=== PATIENT | male | born 1930 | race Caucasian/White ===

== ENCOUNTER 2019-05-18 13:30 | Inpatient (IN) ==
[2019-05-18 13:31] LABS: Basophils % 0.1 % (0.1-2.0); Eosinophils % 0.3 % (0.1-12.0); Hematocrit 42.5 % (42.0-52.0); Hemoglobin 13.3 g/dL (14.1-18.0); Lymphocytes # 0.9 K/mm3 (0.7-4.5); Lymphocytes % 6.8 % (10-50); Mean Corpuscular HGB Conc 31.2 g/dL (31.8-35.4); Mean Corpuscular Volume 89.4 fl (80-94); Mean Platelet Volume 7.4 fl (7.4-10.4); Monocytes # 0.7 K/mm3 (0.1-1.0); Monocytes % 5.7 % (1.7-9.3); Neutrophils # 10.9 K/mm3 (1.8-7.8); Neutrophils % 87.1 % (37.0-80.0); Platelet Count 515 K/mm3 (142-424); Red Blood Count 4.76 M/mm3 (4.60-6.20); White Blood Count 12.5 K/mm3 (4.8-10.8)
[2019-05-18 13:53] LABS: Hypochromasia 1+; Lymphocytes % 7 % (10-50); Neutrophils % 89 % (42-76); Total Cells Counted 100
[2019-05-18 14:10] LABS: Albumin Level 1.9 gm/dL (3.4-5.0); Albumin/Globulin Ratio 0.4 (1.1-1.8); Anion Gap 14.4 mEq/L (5-15); Bilirubin,Total 0.6 mg/dL (0.2-1.0); Calcium 9.2 mg/dL (8.5-10.1); Globulin 5.2 gm/dl (1.3-3.2); Total Protein,Serum 7.1 gm/dL (6.4-8.2)
[2019-05-18 15:09] LABS: ABG HCO3 23.2 mmhg (22.0-26.0); ABG Oxygen Saturation 88 % (90-100); ABG PCO2 30.6 mmhg (35.0-45.0); ABG PO2 53.6 mmhg (80-100); ABG TCO2 24.2 mmhg (23-27)
[2019-05-18 15:10] LABS: Allen's Test ACCEPTABLE; Oxygen 5LPM %
--- NOTE | 2019-05-18 15:48 | Emergency Department Note ---
ED Disposition Clinical Impression: Community acquired pneumonia, Acute exacerbation of chronic obstructive airways disease Disposition: Admitted As Inpatient Condition on Discharge: Fair Referrals: Provider,Referral, [Primary Care Provider] - - Critical Care Critical Care Time: No Attestation: On 05/18/19, the high probability of a clinically significant, sudden or life threatening deterioration of the following system(s) required my full and direct attention, intervention and personal management. The time I documented below is in addition to time spent performing reported procedures but includes the following listed in this critical care notation. Medical Decision Making - Medical Records Medical records reviewed: Yes: I reviewed the patient's medical records. - Jhon Inquiry Pt receiving controlled substance: No Jhon was queried for this patient: No Vital Signs: 05/18/19 13:07 05/18/19 13:42 05/18/19 14:42 Temperature 98.0 F Temperature Source Oral Pulse Rate [Right Brachial] 118 H 117 H 121 H Respiratory Rate 16 Blood Pressure [Right Arm] 153/84 H 147/81 H 121/56 L Blood Pressure Mean [Right Arm] 107 103 77 Blood Pressure Source [Right Arm] Automatic Cuff Automatic Cuff Automatic Cuff Blood Pressure Position [Right Arm] Sitting Sitting Sitting 02 Sat by Pulse Oximetry 96 90 L 87 L Oxygen Delivery Method Room Air Room Air Nasal Cannula Oxygen Flow Rate (LPM) 4 05/18/19 15:08 Temperature Temperature Source Pulse Rate [Right Brachial] 119 H Respiratory Rate Blood Pressure [Right Arm] 120/65 Blood Pressure Mean [Right Arm] 83 Blood Pressure Source [Right Arm] Automatic Cuff Blood Pressure Position [Right Arm] Sitting 02 Sat by Pulse Oximetry 87 L Oxygen Delivery Method Nasal Cannula Oxygen Flow Rate (LPM) 5 - Lab Data Lab Results 05/18/19 13:10: WBC 12.5 H, RBC 4.76, Hgb 13.3 L, Hct 42.5, MCV 89.4, MCH 27.9, MCHC 31.2 L, RDW 14.0, Plt Count 515 H, MPV 7.4, Neut % (Auto) 87.1 H, Lymph % (Auto) 6.8 L, [place] % (Auto) 5.7, Eos % (Auto) 0.3, Baso % (Auto) 0.1, Neut # (Auto) 10.9 H, Lymph # (Auto) 0.9, [place] # (Auto) 0.7, Eos # (Auto) 0.0, Baso # (Auto) 0.0, Total Counted 100, Neutrophils % (Manual) 89 H, Band Neutrophils % 3.0, Lymphocytes % (Manual) 7 L, Metamyelocytes % 1.0, Platelet Estimate Normal, Hypochromasia 1+ 05/18/19 13:10: Sodium 135 L, Potassium 4.4, Chloride 98, Carbon Dioxide 27, Anion Gap 14.4, BUN 34 H, Creatinine 1.25, Estimated Creat Clear 51, Estimated GFR 55 L, Est GFR ( Amer) 66, Glucose 167 H, Calcium 9.2, Total Bilirubin 0.6, AST 39 H, ALT 36, Alkaline Phosphatase 132 H, Total Protein 7.1, Albumin 1.9 L, Globulin 5.2 H, Albumin/Globulin Ratio 0.4 L 05/18/19 13:10: Lactate 1.8 05/18/19 13:10: B-Natriuretic Peptide 92 05/18/19 13:42: Specimen Source R radial, O2 % 5lpm, ABG pH 7.50 H, ABG pCO2 30.6 L, ABG pO2 53.6 L, ABG HCO3 23.2, ABG Total CO2 24.2, ABG O2 Saturation 88 L, ABG Base Excess 0.0, [place] Test Acceptable Result diagrams: 05/18/19 13:10 05/18/19 13:10 Orders (Tests/Meds): ED MEDICATIONS Generic Name Dose Route Start Last Admin Trade Name Freq PRN Reason Stop Dose Admin Sodium Chloride 3 ml 05/18/19 13:41 Sodium Chloride 3% 15ml Neb IH 06/17/19 13:40 ONCE PRN INDUCE SPUTUM COLLECTION ORDERS Category Date Time Status Blood Culture Stat Micro 05/18/19 13:10 Received Sputum Culture & Gram Stain Stat Micro 05/18/19 13:41 Ordered General Adult HPI - General Chief complaint: Shortness of Breath/Dyspnea Stated complaint: shortness of air s/p ivf infusion Time Seen by Provider: 05/18/19 13:30 Mode of Arrival: EMS Source of Information: Patient Limitations: Physical Limitations Description of Symptoms (Recalled from ER Triage Doc. by RN): pt with recent hip surgery was sent to [facility] for rehab pt/ot and subsequently became dehydrated during his stay. vt staff gave him ivf's last night. this morning he couldn't breathe well. - History of Present Illness HPI narrative: The patient is an 89-year-old white male who resides at the skilled nursing. The patient was brought to the emergency room 2 days ago and given a liter of fluids. At that time the diagnosis of dehydration. Patient comes in today rattling short of breath without terrible acute distress. Patient has been coughing up yellowish sputum. The patient has felt feverish with chills. Patient has no actual fever. The patient has some shortness of breath. Patient has had no sore throat or headache. The patient has not had any nausea vomiting or diarrhea. The patient has maintained a small added appetite since all this occurred. Patient has no swelling or distal extremity complaints. Onset (ago): day(s) Location: chest Radiation: non-radiation Severity: mild Consistency: constant Relieving factors: none Exacerbating factors: none Associated symptoms: denies other symptoms - Related Data Home Medications Medication Instructions Recorded Confirmed aspirin 81 mg tablet,delayed 81 mg PO ONCE 01/22/18 03/25/19 release atorvastatin 40 mg tablet 40 mg PO ONCE 01/22/18 03/25/19 fenofibrate micronized 134 mg 134 mg PO ONCE 01/22/18 03/25/19 capsule furosemide 20 mg tablet 20 mg PO BID tab 01/22/18 03/25/19 ipratropium 20 mcg-albuterol 100 1 puff INHALATION Q6H 01/22/18 03/25/19 mcg/actuation mist for inhalation metoprolol succinate ER 50 mg 50 mg PO ONCE 01/22/18 03/25/19 tablet,extended release 24 hr buspirone 5 mg tablet 5 mg PO BID 02/25/19 03/25/19 escitalopram 10 mg tablet 10 mg PO DAILY 02/25/19 03/25/19 hydroxyzine HCl 25 mg tablet 25 mg PO QHS 02/25/19 03/25/19 metoprolol succinate ER 50 mg 50 mg PO DAILY 02/25/19 03/25/19 capsule sprinkle, ext. release 24 hr oxybutynin chloride ER 15 mg 15 mg PO DAILY 02/25/19 03/25/19 tablet,extended release 24 hr propranolol 20 mg/5 mL (4 mg/mL) 10 mg PO BID 02/25/19 03/25/19 oral solution ranitidine 150 mg capsule 150 mg PO DAILY 02/25/19 03/25/19 tamsulosin 0.4 mg capsule 0.4 mg PO DAILY 02/25/19 03/25/19 venlafaxine ER 75 mg 75 mg PO DAILY 02/25/19 03/25/19 capsule,extended release 24 hr Allergies Allergy/AdvReac Type Severity Reaction Status Date / Time No Known Allergies Allergy Verified 03/25/19 13:34 [facility] History - Hepatitis A Screen Drug use history?: No High risk sexual behaviors?: No History of sexually transmitted infection?: No Currently employed?: No Childcare worker?: No Do you have indoor plumbing?: Yes Do you have electricity?: Yes Attestation statement:: This patient has been screened for Hepatitis A risk factors. Medical History: Reports:: Carotid Stenosis, Chronic Obstructive Pulmonary Disease (COPD), Coronary Artery Disease, Heart Murmur, Hyperlipidemia, Hypertension, Lung Disease, Peripheral Vascular Disease Denies:: Diabetes Mellitus Type 1, Diabetes Mellitus Type 2, Internal Pacemaker, Seizures Other Medical History: Reports: Anemia Other Surgeries: Yes: Colonoscopy, Hernia Repair, Other (back sx). No: Pacemaker Amputation: No Fractures: No Comment: back surg x3, cataract both eyes - Social History Smoking Status: Former smoker Alcohol Intake: never Alcohol Intake Frequency:: 0-2 drinks per day Substance Use Type: denies use Occupational Status: retired Housing: house Household Members: family Family Hx:: No significant family history ROS Obtained: Yes All systems reviewed & no additional complaints Physical Exam - General General appearance: alert, in no apparent distress - Head Head exam: atraumatic, normocephalic, normal inspection - Eye Eye exam: Present: normal appearance, PERRL, EOMI - ENT ENT exam: Present: normal exam, normal oropharynx, mucous membranes moist, TM's normal bilaterally, normal external ear exam - Neck Neck exam: Present: normal inspection, full ROM, trachea midline. Absent: meningismus, lymphadenopathy - Chest Chest inspection: Present: normal inspection, symmetric chest wall rise. Absent: tenderness - Respiratory Respiratory exam: Present: wheezes. Absent: respiratory distress - Expanded Respiratory Exam Location: Right: wheezes, rales, rhonchi - Cardiovascular Cardiovascular exam: Present: regular rate, irregular rhythm. Absent: JVD - Abdominal Exam Abdominal exam: Present: soft, normal bowel sounds. Absent: distention, tenderness, guarding - exam: Present: normal inspection - Extremities Exam Extremities exam: Present: normal inspection, full ROM, normal capillary refill. Absent: calf tenderness - Back Exam Back exam: Present: normal inspection. Absent: tenderness - Neurological Exam Neurological exam: Present: alert, oriented X3 - Psychiatric Psychiatric exam: Present: normal affect, normal mood - Skin Skin exam: Present: warm, dry, intact, normal color - Lymphatic Lymphatic Findings: no adenopathy
--- NOTE | 2019-05-18 15:59 | Electrocardiograph Report ---
APPROVED REPORT Exam: Resting ECG HR:114 bpm ECG Measurements Heart Rate 114 AXES MD 164 P 113 QRSd 88 QRS 219 QT 314 T116 QTc 432 <Conclusion> Sinus tachycardia with occasional premature ventricular complexes Right superior axis deviation late r wave progression Abnormal ECG Electronically signed by : Irwin Barron, 05/18/2019 15:59:09
--- NOTE | 2019-05-18 17:37 | History & Physical Report ---
*Admission Date: 05/18/19 *Chief complaint: shortness of breath *History of present illness: 89 year old male with a significant history of COPD and MRSA pneumonia was transported to ED for SOA from [facility] where he has been for the last few weeks following hip fracture repair. Patient was treated with a round of Bactrim approx 2 weeks ago for concern of pneumonia. He had no improvement of cough/congestion and CXR was ordered last week which was unremarkable. Patient was given prednisone taper and duonebs x 1 week. Yesterday labs showed mild dehydration and he was given a liter of normal saline. Today, nursing staff report worsening shortness of breath, saturations 83% 3L/NC, weakness and confusion. Of note, patient is not typically on oxygen. On exam, patient was found to be tachypneic at 36-40, hypoxic with saturations in the low 80's on oxygen and dyspneic with conversation. Patient was given Lasix IM and transferred to [facility] ED for further evaluation. In the ED, patient was found to have RUL and RLL pneumonia with leukocytosis of 12. Patient was admitted for IV antibiotics and further evaluation. [facility] History I have reviewed the patient's past medical history: Yes Medical History: Reports:: Carotid Stenosis, Chronic Obstructive Pulmonary Disease (COPD), Coronary Artery Disease, Heart Murmur, Hyperlipidemia, Hypertension, Lung Disease, Peripheral Vascular Disease Denies:: Diabetes Mellitus Type 1, Diabetes Mellitus Type 2, Internal Pacemaker, Seizures *Have you ever received a pneumonia vaccine?: No *Have you received a flu vaccine this season?: No Other Medical History: Reports: Anemia Other Surgeries: Yes: Colonoscopy, Hernia Repair, Other (back sx). No: Pacemaker Amputation: No Fractures: No - *Social History Smoking Status: Former smoker Alcohol Intake: never Alcohol Intake Frequency:: 0-2 drinks per day Substance Use Type: denies use *Occupational Status:: retired Housing: house Household Members: family *Travel in the last 8 weeks: None Family Hx:: No significant family history Review of Systems - Constitutional Reports fatigue, Reports malaise, Reports weakness - *Respiratory Reports chest congestion, Reports cough, Reports shortness of breath Meds Home Medications Medication Instructions Recorded Confirmed Type aspirin 81 mg tablet,delayed 81 mg PO DAILY 01/22/18 05/18/19 History release atorvastatin 40 mg tablet 40 mg PO DAILY 01/22/18 05/18/19 History fenofibrate micronized 134 mg 134 mg PO DAILY 01/22/18 05/18/19 History capsule furosemide 20 mg tablet 20 mg PO BID tab 01/22/18 05/18/19 History ipratropium 20 mcg-albuterol 100 1 puff INHALATION Q6H 01/22/18 05/18/19 History mcg/actuation mist for inhalation metoprolol succinate ER 50 mg 50 mg PO DAILY 01/22/18 05/18/19 History tablet,extended release 24 hr buspirone 5 mg tablet 5 mg PO BID 02/25/19 05/18/19 History escitalopram 10 mg tablet 10 mg PO DAILY 02/25/19 05/18/19 History hydroxyzine HCl 25 mg tablet 25 mg PO QHS 02/25/19 05/18/19 History oxybutynin chloride ER 15 mg 15 mg PO DAILY 02/25/19 05/18/19 History tablet,extended release 24 hr propranolol 20 mg/5 mL (4 mg/mL) 10 mg PO BID 02/25/19 05/18/19 History oral solution ranitidine 150 mg capsule 150 mg PO DAILY 02/25/19 05/18/19 History tamsulosin 0.4 mg capsule 0.4 mg PO DAILY 02/25/19 05/18/19 History venlafaxine ER 75 mg 75 mg PO DAILY 02/25/19 05/18/19 History capsule,extended release 24 hr Allergies Allergy/AdvReac Type Severity Reaction Status Date / Time No Known Allergies Allergy Verified 03/25/19 13:34 Exam Vital signs and Labs for Last 24 Hours: Temp Pulse Resp BP Pulse Ox 98.0 F 118 H 16 116/66 87 L 05/18/19 13:07 05/18/19 16:41 05/18/19 13:07 05/18/19 16:41 05/18/19 16:41 Laboratory Results - last 24 hr 05/18/19 13:10: WBC 12.5 H, RBC 4.76, Hgb 13.3 L, Hct 42.5, MCV 89.4, MCH 27.9, MCHC 31.2 L, RDW 14.0, Plt Count 515 H, MPV 7.4, Neut % (Auto) 87.1 H, Lymph % (Auto) 6.8 L, [place] % (Auto) 5.7, Eos % (Auto) 0.3, Baso % (Auto) 0.1, Neut # (Auto) 10.9 H, Lymph # (Auto) 0.9, [place] # (Auto) 0.7, Eos # (Auto) 0.0, Baso # (Auto) 0.0, Total Counted 100, Neutrophils % (Manual) 89 H, Band Neutrophils % 3.0, Lymphocytes % (Manual) 7 L, Metamyelocytes % 1.0, Platelet Estimate Normal, Hypochromasia 1+ 05/18/19 13:10: Sodium 135 L, Potassium 4.4, Chloride 98, Carbon Dioxide 27, Anion Gap 14.4, BUN 34 H, Creatinine 1.25, Estimated Creat Clear 51, Estimated GFR 55 L, Est GFR ( Amer) 66, Glucose 167 H, Calcium 9.2, Total Bilirubin 0.6, AST 39 H, ALT 36, Alkaline Phosphatase 132 H, Total Protein 7.1, Albumin 1.9 L, Globulin 5.2 H, Albumin/Globulin Ratio 0.4 L 05/18/19 13:10: Lactate 1.8 05/18/19 13:10: B-Natriuretic Peptide 92 05/18/19 13:42: Specimen Source R radial, O2 % 5lpm, ABG pH 7.50 H, ABG pCO2 30.6 L, ABG pO2 53.6 L, ABG HCO3 23.2, ABG Total CO2 24.2, ABG O2 Saturation 88 L, ABG Base Excess 0.0, [place] Test Acceptable I & O for Last 24 hours: Intake & Output 05/16/19 05/17/19 05/18/19 05/19/19 11:59 11:59 11:59 11:59 Weight 190 lb Narrative: Frail, elderly gentleman in moderate distress. Tachypneic 36-40, saturations 82% 3L/NC. Rate and rhythm regular. Mildly tachycardiac. Lung sounds with scattered wheezes, loose rhonchi and crackles RLL. Abdomen soft and nontender. No LE edema. Alert and oriented x2 with noted confusion. He did recognize me, states "you work with Dr. Barron." ENT exam unremarkable. No LE edema Assessment and Plan (1) HCAP (healthcare-associated pneumonia) Current visit: Yes Status: Acute Category: Medical Code(s): J18.9 - Pneumonia, unspecified organism (2) Acute exacerbation of chronic obstructive airways disease Current visit: Yes Status: Acute Category: Medical Code(s): J44.1 - Chronic obstructive pulmonary disease with (acute) exacerbation - Assessment and plan all Dx Assessment and Plan for all problems:: Change antibiotics to cefepime and vancomycin given his history. Blood cultures pending. Obtain sputum if able to produce. Duonebs added Q 6 hours.
[2019-05-19 07:11] LABS: Basophils % 0.1 % (0.1-2.0); Eosinophils # 0.1 K/mm3 (0.0-0.4); Eosinophils % 0.8 % (0.1-12.0); Hematocrit 38.4 % (42.0-52.0); Hemoglobin 12.2 g/dL (14.1-18.0); Lymphocytes # 0.7 K/mm3 (0.7-4.5); Mean Corpuscular HGB Conc 31.7 g/dL (31.8-35.4); Mean Corpuscular Volume 89.3 fl (80-94); Monocytes # 0.8 K/mm3 (0.1-1.0); Neutrophils # 10.4 K/mm3 (1.8-7.8); Neutrophils % 86.2 % (37.0-80.0); Platelet Count 431 K/mm3 (142-424)
[2019-05-19 07:25] LABS: Albumin Level 1.6 gm/dL (3.4-5.0); Albumin/Globulin Ratio 0.3 (1.1-1.8); Anion Gap 10.4 mEq/L (5-15); Bilirubin,Total 0.6 mg/dL (0.2-1.0); Calcium 8.6 mg/dL (8.5-10.1); Globulin 4.6 gm/dl (1.3-3.2); Total Protein,Serum 6.2 gm/dL (6.4-8.2)
--- NOTE | 2019-05-19 07:29 | Pharmacy Consult Notes ---
[facility] Pharmacy VTE Monitoring - Patient Demographics Admission date: 05/18/19 Report Date: 05/19/19 Time: 07:29 Allergies/Adverse Reactions: Patient Allergies No Known Allergies Allergy (Verified 03/25/19 13:34) Height: 1.75 m Weight: 67.358 kg Patient Problems: Current Active Problems Community acquired pneumonia (Acute) Acute exacerbation of chronic obstructive airways disease (Acute) HCAP (healthcare-associated pneumonia) (Acute) - VTE Risk Labs: VTE Related Lab Results Hgb 13.3 g/dL (14.1-18.0) L 05/18/19 13:10 Hct 42.5 % (42.0-52.0) 05/18/19 13:10 Plt Count 515 K/mm3 (142-424) H 05/18/19 13:10 BUN 31 mg/dL (7-18) H 05/19/19 06:12 Creatinine 1.13 mg/dL (0.70-1.30) 05/19/19 06:12 Estimated Creat Clear 44 mL/min (50-200) 05/19/19 06:12 Was VTE Risk Assessment Performed: Yes VTE Score: 3 VTE Risk Level: Low Risk Clinical Trial Participant: No - Prophylaxis VTE Prophylaxis Ordered?: Yes Types of VTE Prophylaxis: TEDS Knee High Location of Applied Device: Bilateral Lower Extremeties
--- NOTE | 2019-05-19 08:21 | Progress Note ---
Internal Medicine - PN: Subj *Date: 05/19/19 *Time: 08:19 Interval history: Patient is awake, alert, he is tolerated his antibiotics through the night. Nurses report that he is been doing well. He has some complaints of shortness of air and cough but otherwise feels somewhat better. Exam Vital signs and Labs for Last 24 Hours: Temp Pulse Resp BP Pulse Ox 98.7 F 94 H 25 H 102/63 L 88 L 05/19/19 04:00 05/19/19 05:49 05/19/19 04:00 05/19/19 04:00 05/19/19 05:49 Laboratory Results - last 24 hr 05/18/19 13:10: WBC 12.5 H, RBC 4.76, Hgb 13.3 L, Hct 42.5, MCV 89.4, MCH 27.9, MCHC 31.2 L, RDW 14.0, Plt Count 515 H, MPV 7.4, Neut % (Auto) 87.1 H, Lymph % (Auto) 6.8 L, [place] % (Auto) 5.7, Eos % (Auto) 0.3, Baso % (Auto) 0.1, Neut # (Auto) 10.9 H, Lymph # (Auto) 0.9, [place] # (Auto) 0.7, Eos # (Auto) 0.0, Baso # (Auto) 0.0, Total Counted 100, Neutrophils % (Manual) 89 H, Band Neutrophils % 3.0, Lymphocytes % (Manual) 7 L, Metamyelocytes % 1.0, Platelet Estimate Normal, Hypochromasia 1+ 05/18/19 13:10: Sodium 135 L, Potassium 4.4, Chloride 98, Carbon Dioxide 27, Anion Gap 14.4, BUN 34 H, Creatinine 1.25, Estimated Creat Clear 51, Estimated GFR 55 L, Est GFR ( Amer) 66, Glucose 167 H, Calcium 9.2, Total Bilirubin 0.6, AST 39 H, ALT 36, Alkaline Phosphatase 132 H, Total Protein 7.1, Albumin 1.9 L, Globulin 5.2 H, Albumin/Globulin Ratio 0.4 L 05/18/19 13:10: Lactate 1.8 05/18/19 13:10: B-Natriuretic Peptide 92 05/18/19 13:42: Specimen Source R radial, O2 % 5lpm, ABG pH 7.50 H, ABG pCO2 30.6 L, ABG pO2 53.6 L, ABG HCO3 23.2, ABG Total CO2 24.2, ABG O2 Saturation 88 L, ABG Base Excess 0.0, [place] Test Acceptable 05/18/19 18:27: POC Glucose 103 05/18/19 20:10: Troponin I < 0.02 05/18/19 20:38: POC Glucose 150 H 05/19/19 01:05: Troponin I < 0.02 05/19/19 06:05: POC Glucose 82 05/19/19 06:12: Sodium 138, Potassium 3.4 L D, Chloride 101, Carbon Dioxide 30, Anion Gap 10.4, BUN 31 H, Creatinine 1.13, Estimated Creat Clear 44, Estimated GFR 61, Est GFR ( Amer) 74, Glucose 99 D, Calcium 8.6, Total Bilirubin 0.6, AST 36, ALT 37, Alkaline Phosphatase 116, Total Protein 6.2 L, Albumin 1.6 L D, Globulin 4.6 H, Albumin/Globulin Ratio 0.3 L I & O for Last 24 hours: Intake & Output 05/16/19 05/17/19 05/18/19 05/19/19 11:59 11:59 11:59 11:59 Intake Total 1164 / 1164 Balance 1164 / 1164 Weight 148 lb 8 oz Narrative: Alert, oriented x3. Globally weak. Oropharynx dry but clear. No JVD. Lungs have rhonchi bilaterally but good air movement. Heart rate regular. Abdomen soft. Extremities warm and well-perfused. Assessment and Plan (1) HCAP (healthcare-associated pneumonia) Current visit: Yes Status: Acute Category: Medical Code(s): J18.9 - Pneumonia, unspecified organism (2) Acute exacerbation of chronic obstructive airways disease Current visit: Yes Status: Acute Category: Medical Code(s): J44.1 - Chronic obstructive pulmonary disease with (acute) exacerbation - Assessment and plan all Dx Assessment and Plan for all problems:: Plan will be to continue broad-spectrum antibiotics as noted. Given his history of MRSA infection we will continue vancomycin. Await sputum cultures. Given his recent hip replacement we will ask PT/OT to work with him to continue therapy while in the hospital.
--- NOTE | 2019-05-19 09:17 | Pharmacy Consult Notes ---
- Pharmacy Consult Date: 05/19/19 Time: 09:15 Referring provider: DR. PIPER Reason for Consult:: VANCOMYCIN DOSING Allergies and ADEs:: Allergies Allergy/AdvReac Type Severity Reaction Status Date / Time No Known Allergies Allergy Verified 03/25/19 13:34 Home Medications:: Home Medications Medication Instructions Recorded Confirmed Type metoprolol succinate ER 50 mg 50 mg PO DAILY 01/22/18 05/19/19 History tablet,extended release 24 hr oxybutynin chloride ER 15 mg 15 mg PO 1700 02/25/19 05/19/19 History tablet,extended release 24 hr ranitidine 150 mg capsule 150 mg PO 0600,1700 02/25/19 05/19/19 History tamsulosin 0.4 mg capsule 0.4 mg PO 1700 02/25/19 05/19/19 History venlafaxine ER 75 mg 75 mg PO DAILY 02/25/19 05/19/19 History capsule,extended release 24 hr Acetaminophen [Tylenol 325mg 650 mg PO Q4HP PRN 05/18/19 05/19/19 History Tablet] Aspirin [Aspirin 325mg Tab] 325 mg PO DAILY 05/18/19 05/19/19 History Bisacodyl [Bisacodyl 10mg Supp] 10 mg RC DAILYP PRN 05/18/19 05/18/19 History Cyclobenzaprine HCl 10 mg PO Q8HP PRN 05/18/19 05/18/19 History [Cyclobenzaprine 10mg Tab] Docusate Sodium [Docusate Sodium 100 mg PO BIDP PRN 05/18/19 05/18/19 History 100mg Cap] Donepezil HCl [Aricept 10mg 10 mg PO HS 05/18/19 05/19/19 History tablet] Ferrous Sulfate 325 mg PO DAILY 05/18/19 05/19/19 History Ipratropium/Albuterol Sulfate 3 ml IH Q6H 05/18/19 05/19/19 History [Duoneb 3mL neb] Ipratropium/Albuterol Sulfate 3 ml IH TIDP PRN 05/18/19 05/19/19 History [Duoneb 3mL neb] LORazepam [Ativan 0.5mg 0.5 mg PO TID 05/18/19 05/19/19 History tablet] Polyethylene Glycol 3350 [Miralax 17 gm PO DAILY 05/18/19 05/18/19 History 17gm Packet] Atorvastatin Calcium [Atorvastatin 80 mg PO HS 05/19/19 05/19/19 History 80mg Tab] Escitalopram Oxalate 20 mg PO HS 05/19/19 05/19/19 History Height: 1.75 m Weight: 67.358 kg Laboratory Results:: Laboratory Results - last 24 hr 05/18/19 13:10: WBC 12.5 H, RBC 4.76, Hgb 13.3 L, Hct 42.5, MCV 89.4, MCH 27.9, MCHC 31.2 L, RDW 14.0, Plt Count 515 H, MPV 7.4, Neut % (Auto) 87.1 H, Lymph % (Auto) 6.8 L, [place] % (Auto) 5.7, Eos % (Auto) 0.3, Baso % (Auto) 0.1, Neut # (Auto) 10.9 H, Lymph # (Auto) 0.9, [place] # (Auto) 0.7, Eos # (Auto) 0.0, Baso # (Auto) 0.0, Total Counted 100, Neutrophils % (Manual) 89 H, Band Neutrophils % 3.0, Lymphocytes % (Manual) 7 L, Metamyelocytes % 1.0, Platelet Estimate Normal, Hypochromasia 1+ 05/18/19 13:10: Sodium 135 L, Potassium 4.4, Chloride 98, Carbon Dioxide 27, Anion Gap 14.4, BUN 34 H, Creatinine 1.25, Estimated Creat Clear 51, Estimated GFR 55 L, Est GFR ( Amer) 66, Glucose 167 H, Calcium 9.2, Total Bilirubin 0.6, AST 39 H, ALT 36, Alkaline Phosphatase 132 H, Total Protein 7.1, Albumin 1.9 L, Globulin 5.2 H, Albumin/Globulin Ratio 0.4 L 05/18/19 13:10: Lactate 1.8 05/18/19 13:10: B-Natriuretic Peptide 92 05/18/19 13:42: Specimen Source R radial, O2 % 5lpm, ABG pH 7.50 H, ABG pCO2 30.6 L, ABG pO2 53.6 L, ABG HCO3 23.2, ABG Total CO2 24.2, ABG O2 Saturation 88 L, ABG Base Excess 0.0, [place] Test Acceptable 05/18/19 18:27: POC Glucose 103 05/18/19 20:10: Troponin I < 0.02 05/18/19 20:38: POC Glucose 150 H 05/19/19 01:05: Troponin I < 0.02 05/19/19 06:05: POC Glucose 82 05/19/19 06:12: WBC 12.0 H, RBC 4.30 L, Hgb 12.2 L, Hct 38.4 L, MCV 89.3, MCH 28.3, MCHC 31.7 L, RDW 14.0, Plt Count 431 H, MPV 7.0 L, Neut % (Auto) 86.2 H, Lymph % (Auto) 6.0 L, [place] % (Auto) 7.0, Eos % (Auto) 0.8, Baso % (Auto) 0.1, Neut # (Auto) 10.4 H, Lymph # (Auto) 0.7, [place] # (Auto) 0.8, Eos # (Auto) 0.1, Baso # (Auto) 0.0 05/19/19 06:12: Sodium 138, Potassium 3.4 L D, Chloride 101, Carbon Dioxide 30, Anion Gap 10.4, BUN 31 H, Creatinine 1.13, Estimated Creat Clear 44, Estimated GFR 61, Est GFR ( Amer) 74, Glucose 99 D, Calcium 8.6, Total Bilirubin 0.6, AST 36, ALT 37, Alkaline Phosphatase 116, Total Protein 6.2 L, Albumin 1.6 L D, Globulin 4.6 H, Albumin/Globulin Ratio 0.3 L Medical History: Reports:: Carotid Stenosis, Chronic Obstructive Pulmonary Disease (COPD), Coronary Artery Disease, Heart Murmur, Hyperlipidemia, Hypertension, Lung Disease, Peripheral Vascular Disease Denies:: Cancer, Diabetes Mellitus Type 1, Diabetes Mellitus Type 2, Internal Pacemaker, MRSA, Seizures Assessment and Plan (1) HCAP (healthcare-associated pneumonia) Current visit: Yes Status: Acute Category: Medical Code(s): J18.9 - Pneumonia, unspecified organism (2) Acute exacerbation of chronic obstructive airways disease Current visit: Yes Status: Acute Category: Medical Code(s): J44.1 - Chronic obstructive pulmonary disease with (acute) exacerbation - Assessment and plan all Dx Assessment and Plan for all problems:: BASED ON PATIENT'S FACTORS, RECOMMENDED CONTINUING WITH VANCOMYCIN 1250 MG Q24H AT THIS TIME. WILL TIME NEXT DOSE FOR 1500 TODAY. PHARMACY WILL FOLLOW DAILY AND ADJUST APPROPRIATE.
[2019-05-19 14:08] LABS: Lymphocytes % 4 % (10-50); Monocytes % 4 % (2-9); Neutrophils % 92 % (42-76); Total Cells Counted 100
[2019-05-19 14:09] LABS: RBC Morphology Normal
[2019-05-20 06:38] LABS: Eosinophils # 0.1 K/mm3 (0.0-0.4); Eosinophils % 0.4 % (0.1-12.0); Hematocrit 37.1 % (42.0-52.0); Hemoglobin 11.1 g/dL (14.1-18.0); Lymphocytes # 0.8 K/mm3 (0.7-4.5); Lymphocytes % 6.4 % (10-50); Mean Corpuscular HGB Conc 29.9 g/dL (31.8-35.4); Mean Corpuscular Volume 90.4 fl (80-94); Mean Platelet Volume 7.3 fl (7.4-10.4); Monocytes # 0.9 K/mm3 (0.1-1.0); Monocytes % 6.8 % (1.7-9.3); Neutrophils # 11.1 K/mm3 (1.8-7.8); Neutrophils % 86.4 % (37.0-80.0); Platelet Count 347 K/mm3 (142-424); Red Blood Count 4.11 M/mm3 (4.60-6.20); Red Cell Distribution Width 14.1 % (11.5-17.5); White Blood Count 12.9 K/mm3 (4.8-10.8)
[2019-05-20 06:40] LABS: Anion Gap 10.4 mEq/L (5-15); Calcium 8.6 mg/dL (8.5-10.1)
--- NOTE | 2019-05-20 07:59 | Progress Note ---
Internal Medicine - PN: Subj *Date: 05/20/19 *Time: 08:44 Interval history: No acute events overnight. Patient stable on supplemental oxygen. Remains afebrile, hemodynamically stable. Denies chest pain, nausea vomiting, diarrhea. Shortness of breath at baseline. Exam Vital signs and Labs for Last 24 Hours: Temp Pulse Resp BP Pulse Ox 99.3 F 90 20 107/55 L 89 L 05/20/19 04:18 05/20/19 06:04 05/20/19 04:18 05/20/19 04:18 05/20/19 06:04 Laboratory Results - last 24 hr 05/19/19 06:12: WBC 12.0 H, RBC 4.30 L, Hgb 12.2 L, Hct 38.4 L, MCV 89.3, MCH 28.3, MCHC 31.7 L, RDW 14.0, Plt Count 431 H, MPV 7.0 L, Neut % (Auto) 86.2 H, Lymph % (Auto) 6.0 L, [place] % (Auto) 7.0, Eos % (Auto) 0.8, Baso % (Auto) 0.1, Neut # (Auto) 10.4 H, Lymph # (Auto) 0.7, [place] # (Auto) 0.8, Eos # (Auto) 0.1, Baso # (Auto) 0.0, Total Counted 100, Neutrophils % (Manual) 92 H, Lymphocytes % (Manual) 4 L, Monocytes % (Manual) 4, Platelet Estimate Normal, RBC Morphology Normal 05/19/19 11:37: POC Glucose 69 L 05/19/19 16:34: POC Glucose 87 05/19/19 20:43: POC Glucose 86 05/20/19 05:38: WBC 12.9 H, RBC 4.11 L, Hgb 11.1 L, Hct 37.1 L, MCV 90.4, MCH 27.0, MCHC 29.9 L, RDW 14.1, Plt Count 347, MPV 7.3 L, Neut % (Auto) 86.4 H, Lymph % (Auto) 6.4 L, [place] % (Auto) 6.8, Eos % (Auto) 0.4, Baso % (Auto) 0.0 L, Neut # (Auto) 11.1 H, Lymph # (Auto) 0.8, [place] # (Auto) 0.9, Eos # (Auto) 0.1, Baso # (Auto) 0.0 05/20/19 05:38: Sodium 138, Potassium 3.4 L, Chloride 103, Carbon Dioxide 28, Anion Gap 10.4, BUN 29 H, Creatinine 1.02, Estimated Creat Clear 50, Estimated GFR 69, Est GFR ( Amer) 84, Glucose 90, Calcium 8.6 05/20/19 06:29: POC Glucose 83 I & O for Last 24 hours: Intake & Output 05/17/19 05/18/19 05/19/19 05/20/19 23:59 23:59 23:59 23:59 Intake Total 120 / 360 2146 / 2146 Balance 120 / 360 2146 / 2146 Weight 64.438 kg 67.358 kg 69.003 kg Narrative: Alert, oriented x3. Globally weak. Oropharynx dry but clear. No JVD. Lungs have rhonchi bilaterally, good air movement throughout lung viera Heart rate regular. Abdomen soft. Extremities warm and well-perfused. Assessment and Plan (1) HCAP (healthcare-associated pneumonia) Current visit: Yes Status: Acute Category: Medical Code(s): J18.9 - Pneumonia, unspecified organism (2) Acute exacerbation of chronic obstructive airways disease Current visit: Yes Status: Acute Category: Medical Code(s): J44.1 - Chronic obstructive pulmonary disease with (acute) exacerbation - Assessment and plan all Dx Assessment and Plan for all problems:: Culture still pending. Patient stable at this time. Continue antibiotics with de-escalation based on cultures if give guidance. [facility]
[2019-05-20 09:17] LABS: Lymphocytes % 3 % (10-50); Monocytes % 5 % (2-9); Neutrophils % 90 % (42-76); Total Cells Counted 100
--- NOTE | 2019-05-20 22:06 | Discharge Summary ---
General - General Admission date:: 05/18/19 <Irwin Barron - 05/21/19 08:45> 05/18/19 <Omer Hunter - 05/20/19 22:06> Discharge date: 05/21/19 <Irwin Barron - 05/21/19 08:45> 05/21/19 <Omer Hunter - 05/20/19 22:06> HPI HPI: 89 year old male with a significant history of COPD and MRSA pneumonia was transported to ED for SOA from [facility] where he has been for the last few weeks following hip fracture repair. Patient was treated with a round of Bactrim approx 2 weeks ago for concern of pneumonia. He had no improvement of cough/congestion and CXR was ordered last week which was unremarkable. Patient was given prednisone taper and duonebs x 1 week. Yesterday labs showed mild dehydration and he was given a liter of normal saline. Today, nursing staff report worsening shortness of breath, saturations 83% 3L/NC, weakness and confusion. Of note, patient is not typically on oxygen. On exam, patient was found to be tachypneic at 36-40, hypoxic with saturations in the low 80's on oxygen and dyspneic with conversation. Patient was given Lasix IM and transferred to [facility] ED for further evaluation. In the ED, patient was found to have RUL and RLL pneumonia with leukocytosis of 12. Patient was admitted for IV antibiotics and further evaluation. <Omer Hunter - 05/20/19 22:06> Hospital Course Hospital Course: Patient was admitted, placed on broad-spectrum IV antibiotics for community acquired pneumonia. He did well with this. Sputum culture was obtained but was nondiagnostic at the time of discharge. Blood cultures were negative for 48 hours. Patient felt better with hydration and laboratory studies improved. This morning patient was still tired and coughing, but stated that he felt "better and I would like to go back to my regular room at [facility]." Patient will be transferred back to [facility] to finish up 1 more day of azithromycin and then 5 more days of Ceftin ear. He needs DuoNeb's 3 times daily and every 4 hours as needed. He will need 3 more days of steroids as noted. He will need to continue PT/OT. <Kevin Barronhen - 05/21/19 08:45> Objective Vital signs: Temp Pulse Resp BP Pulse Ox 97.9 F 107 H 19 114/53 L 91 L 05/21/19 08:00 05/21/19 08:00 05/21/19 08:00 05/21/19 08:00 05/21/19 08:00 <Maria LhectorIrwin - 05/21/19 08:45> Temp Pulse Resp BP Pulse Ox 98.8 F 88 16 109/48 L 88 L 05/20/19 19:14 05/20/19 19:14 05/20/19 19:14 05/20/19 19:14 05/20/19 19:22 <Omer Hunter - 05/20/19 22:06> Narrative: ENT exam clear. Oropharynx clear. No JVD. Rhonchi throughout lung viera but these are about the same as previously. Heart rate regular. Abdomen soft nontender. Good distal perfusion. Able to move all arms and legs well. Globally weak. <Irwin Barron - 05/21/19 08:45> Results Labs on day of discharge: Labs from last 24 hours 05/21/19 05/20/19 05/20/19 06:29 21:44 16:19 Total Counted Neutrophils % (Manual) Band Neutrophils % Lymphocytes % (Manual) Monocytes % (Manual) Platelet Estimate POC Glucose 89 93 91 Vancomycin Trough 05/20/19 05/20/19 05/20/19 14:32 11:39 05:38 Total Counted 100 Neutrophils % (Manual) 90 H Band Neutrophils % 2.0 Lymphocytes % (Manual) 3 L Monocytes % (Manual) 5 Platelet Estimate Normal POC Glucose 93 Vancomycin Trough 10.4 Preliminary micro results at discharge 05/20/19 10:55 Sputum Culture - Preliminary Sputum - Expectorated Sputum 05/18/19 13:10 Blood Culture - Preliminary Blood NO GROWTH AFTER 48 HOURS 05/18/19 13:10 Blood Culture - Preliminary Blood NO GROWTH AFTER 48 HOURS <Irwin Barron - 05/21/19 08:45> Labs from last 24 hours 05/20/19 05/20/19 05/20/19 16:19 14:32 06:29 WBC RBC Hgb Hct MCV MCH MCHC RDW Plt Count MPV Neut % (Auto) Lymph % (Auto) [place] % (Auto) Eos % (Auto) Baso % (Auto) Neut # (Auto) Lymph # (Auto) [place] # (Auto) Eos # (Auto) Baso # (Auto) Total Counted Neutrophils % (Manual) Band Neutrophils % Lymphocytes % (Manual) Monocytes % (Manual) Platelet Estimate Sodium Potassium Chloride Carbon Dioxide Anion Gap BUN Creatinine Estimated Creat Clear Estimated GFR Est GFR ( Amer) Glucose POC Glucose 91 83 Calcium Vancomycin Trough 10.4 05/20/19 05/20/19 05/19/19 05:38 05:38 20:43 WBC 12.9 H RBC 4.11 L Hgb 11.1 L Hct 37.1 L MCV 90.4 MCH 27.0 MCHC 29.9 L RDW 14.1 Plt Count 347 MPV 7.3 L Neut % (Auto) 86.4 H Lymph % (Auto) 6.4 L [place] % (Auto) 6.8 Eos % (Auto) 0.4 Baso % (Auto) 0.0 L Neut # (Auto) 11.1 H Lymph # (Auto) 0.8 [place] # (Auto) 0.9 Eos # (Auto) 0.1 Baso # (Auto) 0.0 Total Counted 100 Neutrophils % (Manual) 90 H Band Neutrophils % 2.0 Lymphocytes % (Manual) 3 L Monocytes % (Manual) 5 Platelet Estimate Normal Sodium 138 Potassium 3.4 L Chloride 103 Carbon Dioxide 28 Anion Gap 10.4 BUN 29 H Creatinine 1.02 Estimated Creat Clear 50 Estimated GFR 69 Est GFR ( Amer) 84 Glucose 90 POC Glucose 86 Calcium 8.6 Vancomycin Trough Preliminary micro results at discharge 05/18/19 13:10 Blood Culture - Preliminary Blood NO GROWTH AFTER 48 HOURS 05/18/19 13:10 Blood Culture - Preliminary Blood NO GROWTH AFTER 48 HOURS <Omer Hunter - 05/20/19 22:06> DS: Diagnosis - Discharge Diagnosis (1) HCAP (healthcare-associated pneumonia) Status: Acute (2) Acute exacerbation of chronic obstructive airways disease Status: Acute <Omer Hunter - 05/20/19 22:01> (1) HCAP (healthcare-associated pneumonia) Status: Acute (2) Acute exacerbation of chronic obstructive airways disease Status: Acute <Irwin Barron - 05/21/19 08:45> Discharge Plan - Patient Discharge Instructions ACTIVITY: Continue current activity <Irwin Barron - 05/21/19 08:45> Ambulate as tolerated, Limited activity <Omer Hunter - 05/20/19 22:06> DIET: continue same diet <Maria LhectorIrwin - 05/21/19 08:45> other (mecanical softs.) <Omer Hunter - 05/20/19 22:06> Patient Instructions: Pneumonia-Adult, Chronic Obstructive Pulmonary Disease, Pneumococcal Vaccine, DI for Chronic Obstructive Pulmonary Disease, DI for Pneumonia -- Adult <Irwin Barron - 05/21/19 08:45> Forms: <AndersonIrwin - 05/21/19 08:45> - Follow up Plan Follow up with: Vannessa Spencer APRN [Nurse Practitioner] - <Irwin Barron - 05/21/19 08:45> Disposition: Xfer SNF <Irwin Barron - 05/21/19 08:45> Home Medications: Home Medications Medication Instructions Recorded Confirmed Type metoprolol succinate ER 50 mg 50 mg PO DAILY 01/22/18 05/19/19 History tablet,extended release 24 hr oxybutynin chloride ER 15 mg 15 mg PO 1700 02/25/19 05/19/19 History tablet,extended release 24 hr ranitidine 150 mg capsule 150 mg PO 0600,1700 02/25/19 05/19/19 History tamsulosin 0.4 mg capsule 0.4 mg PO 1700 02/25/19 05/19/19 History venlafaxine ER 75 mg 75 mg PO DAILY 02/25/19 05/19/19 History capsule,extended release 24 hr Acetaminophen [Tylenol 325mg 650 mg PO Q4HP PRN 05/18/19 05/19/19 History Tablet] Aspirin [Aspirin 325mg Tab] 325 mg PO DAILY 05/18/19 05/19/19 History Bisacodyl [Bisacodyl 10mg Supp] 10 mg RC DAILYP PRN 05/18/19 05/18/19 History Cyclobenzaprine HCl 10 mg PO Q8HP PRN 05/18/19 05/18/19 History [Cyclobenzaprine 10mg Tab] Docusate Sodium [Docusate Sodium 100 mg PO BIDP PRN 05/18/19 05/18/19 History 100mg Cap] Donepezil HCl [Aricept 10mg 10 mg PO HS 05/18/19 05/19/19 History tablet] Ferrous Sulfate 325 mg PO DAILY 05/18/19 05/19/19 History Ipratropium/Albuterol Sulfate 3 ml IH Q6H 05/18/19 05/19/19 History [Duoneb 3mL neb] Ipratropium/Albuterol Sulfate 3 ml IH TIDP PRN 05/18/19 05/19/19 History [Duoneb 3mL neb] LORazepam [Ativan 0.5mg 0.5 mg PO TID 05/18/19 05/19/19 History tablet] Polyethylene Glycol 3350 [Miralax 17 gm PO DAILY 05/18/19 05/18/19 History 17gm Packet] Atorvastatin Calcium [Atorvastatin 80 mg PO HS 05/19/19 05/19/19 History 80mg Tab] Escitalopram Oxalate 20 mg PO HS 05/19/19 05/19/19 History Azithromycin [Azithromycin 500mg 500 mg PO DAILY 1 Days #1 tab 05/21/19 Rx Tab] Cefdinir [Omnicef 300mg Capsule] 300 mg PO BID 7 Days #14 cap 05/21/19 Rx <Irwin Barron - 05/21/19 08:45> Prescriptions/Medication Reconciliation: New Cefdinir [Omnicef 300mg Capsule] 300 mg PO BID 7 Days #14 cap Azithromycin [Azithromycin 500mg Tab] 500 mg PO DAILY 1 Days #1 tab Continued metoprolol succinate ER 50 mg tablet,extended release 24 hr 50 mg PO DAILY tamsulosin 0.4 mg capsule 0.4 mg PO 1700 venlafaxine ER 75 mg capsule,extended release 24 hr 75 mg PO DAILY ranitidine 150 mg capsule 150 mg PO 0600,1700 oxybutynin chloride ER 15 mg tablet,extended release 24 hr 15 mg PO 1700 LORazepam [Ativan 0.5mg tablet] 0.5 mg PO TID Ipratropium/Albuterol Sulfate [Duoneb 3mL neb] 3 ml IH Q6H Docusate Sodium [Docusate Sodium 100mg Cap] 100 mg PO BIDP PRN PRN Reason: Constipation Cyclobenzaprine HCl [Cyclobenzaprine 10mg Tab] 10 mg PO Q8HP PRN PRN Reason: muscle spasms Acetaminophen [Tylenol 325mg Tablet] 650 mg PO Q4HP PRN PRN Reason: As Needed For Fever Or Pain Bisacodyl [Bisacodyl 10mg Supp] 10 mg RC DAILYP PRN PRN Reason: Constipation Polyethylene Glycol 3350 [Miralax 17gm Packet] 17 gm PO DAILY Ferrous Sulfate 325 mg PO DAILY Aspirin [Aspirin 325mg Tab] 325 mg PO DAILY Ipratropium/Albuterol Sulfate [Duoneb 3mL neb] 3 ml IH TIDP PRN PRN Reason: Wheezing Escitalopram Oxalate 20 mg PO HS Donepezil HCl [Aricept 10mg tablet] 10 mg PO HS Atorvastatin Calcium [Atorvastatin 80mg Tab] 80 mg PO HS <Irwin Barron - 05/21/19 08:45> - Problem Reconciliation Problems Reviewed?: Yes <Irwin Barron - 05/21/19 08:45> Yes <Omer Hunter - 05/20/19 22:06>
== END 2019-05-21 11:26 | DRG 190 ==
LOC: ER 13:30 → 2ND 15:50
PROVIDERS: ADMIT Internal Medicine Adolescent Medicine; ATTEND Internal Medicine Adolescent Medicine
CPT/HCPCS: 36415; 71010; 71045; 80048; 80053; 80202; 82803; 82962; 83605; 83880; 84484; 85007; 85025; 87040; 87070; 87077; 87205; 92610; 93005; 94640; 94760; 94761; 96365; 96366; 96367; 96375; 97116; 97162; 97166; 97530; 97535; 99284; 99285; J0456; J3370